=== PATIENT | male | born 1960 | race Caucasian/White ===

== ENCOUNTER 2024-01-20 00:19 | Emergency (ER) | payer OTHER, SELFPAY ==
[2024-01-20 00:40] VITALS: BP 154/91
[2024-01-20 01:54] LABS: % Basophils 0.4 % (0-2); % Eosinophils 2.1 % (0-6); % Immature Granulocytes 0.1 % (0-0.5); % Lymphocytes 38.5 % (20.5-51.1); % Monocytes 7.6 % (1.7-9.3); % Neutrophils 51.3 % (42.2-75.2); Absolute Eosinophils 0.1 10^3/uL (0-0.7); Absolute Lymphocytes 2.6 10^3/uL (1.2-3.4); Absolute Monocytes 0.5 10^3/uL (0.1-0.6); Absolute Neutrophils 3.5 10^3/uL (1.4-6.5); Hematocrit 40.6 % (39.0-52.0); Hemoglobin 14.2 g/dL (13.0-18.0); Mean Corpuscular Hgb 29.6 pg (27.0-31.0); Mean Corpuscular Volume 84.8 fL (80.0-94.0); Mean Platelet Volume 9.5 fL (7.4-10.4); Nucleated Red Blood Cells % 0 % (-); Platelet Count 318 10^3/uL (130-400); Red Blood Cell Count 4.79 10^6/uL (4.70-6.10); Red Cell Dist. Width 13.3 % (11.5-14.5); White Blood Cell Count 6.8 10^3/uL (4.8-10.8)
[2024-01-20 02:07] LABS: ALT (SGPT) 17 U/L (0-50); AST (SGOT) 26 U/L (17-59); Albumin 4.7 g/dl (3.5-5.0); Alkaline Phosphatase 67 U/L (38-126); Blood Urea Nitrogen 18 mg/dl (9-20); Calcium 9.9 mg/dl (8.4-10.2); Carbon Dioxide 25 mmol/L (22-30); Chloride 104 mmol/L (98-107); Glucose 94 mg/dl (70-99); Potassium 4.1 mmol/L (3.5-5.1); Sodium 138 mmol/L (135-145); Total Protein 6.9 g/dl (6.3-8.2); eGFR > 60.00
[2024-01-20 02:19] LABS: Troponin I < 0.012 ng/ml
[2024-01-20 02:41] VITALS: BMI 22.0
[2024-01-20 02:42] VITALS: BP 165/91
[2024-01-20 03:00] VITALS: BP 144/90
[2024-01-20 04:00] VITALS: BP 144/97
--- NOTE | 2024-01-20 04:13 | ED.GENMED ---
History of Present Illness
General
Chief Complaint: Dizziness
Source: patient
Exam Limitations: none
Time Seen by Provider: 01/20/24 03:08
Nursing documentation reviewed up to this point in time: agreed with
History of Present Illness
History of Present Illness:
This is a 63-year-old gentleman who has history of hyperlipidemia, GERD who complains of somewhat abrupt onset of dizziness that began tonight while sitting on the couch. Dizziness described as a sense of movement, lightheadedness that was worse
with standing, improved mildly with sitting still. He complains of difficulty ambulating feeling that he was swaying from [id number] perhaps more so to the left. He also noted mild right-sided headache which has since resolved. Upon EMS
arrival, dizziness seem to worsen en route to the hospital and he developed nausea that improved with IV Zofran provided prehospital.
No history of similar episodes in the past.
Dizziness has since resolved since arrival to the ED.
He does note moderate left-sided headache with waking him from sleep over the past 2 nights which is new for him. Other than this he has been feeling well. No recent URI nor GI illness.
His daily medications include atorvastatin, pantoprazole, amitriptyline.
He was working outdoors for approximately 5 hours in the significantly hot, humid weather yesterday but states he attempted to keep up with his fluids throughout the day and evening.
Past History
Past History
ED Past Medical History: GERD and Hypercholesterolemia
ED Past Surgical History: Orthopedic
Social History
Tobacco: Non-smoker
Alcohol: Occasional
Personal: Single
Living: alone
Employment: Employed
Family History
Family History: Other (Noncontributory)
Phy Exam
Physical Exam
Physical Exam:
GENERAL: Alert , in no apparent distress. 63-year-old gentleman appears his stated age, awake and alert, pleasant, appears in no acute distress.
EYE: pupils equal and reactive. anicteric
NECK: Supple, nontender, no meningismus, no significant adenopathy.
ENT: posterior pharynx is clear, oral mucosa is moist. No rhinorrhea.
CARDIAC: Regular rate and rhythm. no murmur.
LUNGS: Clear breath sounds bilaterally, no acute respiratory distress, no wheezes/rales/rhonchi
ABDOMEN: Soft, nondistended, without focal tenderness, no r/g, no cvat. normoactive BS.
NEUROLOGICAL: Alert and oriented x3, no focal neuro deficits.
SKIN: Warm and dry, normal color, skin intact. No rash.
MUSCULOSKELETAL: No C/C/E. peripheral pulses are full and equal b/l. No palpable tenderness.
PSYCH: Normal and appropriate interaction.
Course
Orders/Labs/Results
Orders:
Orders
01/20/24 00:46
Electrocardiogram (*1) Urgent
Reason for Study: Chest Pain
Cardiology Consult: Unknown
01/20/24 00:47
EKG- Treatment ONCE
01/20/24 01:48
Complete Blood Count/With Diff Urgent
Comprehensive Metabolic Panel Urgent
Troponin I Urgent
01/20/24 03:28
CT Head W/o Iv Contrast Urgent
Comment:
Reason For Exam: intermitt h/a x 3 d; acute dizziness
01/20/24 01:48
01/20/24 01:48
Vital Signs
Initial and Last Documented VS:
Initial Vital Signs
Temp Pulse Resp BP Pulse Ox
98.1 F 60 20 154/91 100
01/20/24 00:40 01/20/24 00:40 01/20/24 00:40 01/20/24 00:40 01/20/24 00:40
Last Documented Vital Signs
Temp Pulse Resp BP Pulse Ox
98.1 F 54 14 156/87 100
01/20/24 00:40 01/20/24 05:30 01/20/24 05:30 01/20/24 05:00 07/14/24 00:40
MDM/Problems Addressed
Differential Diagnosis Includes:
Concern for vertigo, benign paroxysmal peripheral vertigo versus central vertigo versus orthostasis. Less likely arrhythmia but is a possibility.
Labs thus far unremarkable.
EKG shows normal sinus rhythm with unifocal PVC. Monitor shows similar.
Due to intermittent headache with onset of dizziness tonight, unsteady gait will check CT of the head.
*Radiology
Radiology exam reviewed: radiology read reviewed (CT of the head is unremarkable, unchanged from previous June 2021)
*Pulse Oximetry
Patient hypoxic: no
*EKG
Interpreted by ED Provider?: Yes
Interpretation: normal
Comparison EKG: no comparison EKG present
Rate: normal
Rhythm: sinus and PVC's
[place]: normal axis
Interval: normal interval
QRS Pattern: normal QRS
Ischemia: no ischemia
*[employer] Interpretation
Rate: normal
Interpretation: normal
Rhythm: sinus and PVC's
*Critical Care Note
Total Time (30-74mins, 75-104mins- exclusive of procedures): Not Applicable
Update Note
Update Note:
01/20/2024 0611 AM
Patient continues to feel well. Sleeping when undisturbed, easily awakens. He has had no return of dizziness. No chest discomfort, continues to deny palpitations.
CT of the head is unremarkable and unchanged from previous 2020.
Monitor continues show normal sinus rhythm with rare unifocal PVCs.
I suspect acute dizziness may be benign paroxysmal positional vertigo versus an element of heat intolerance from working outdoors and extremely hot/humid environment.
Discussed importance of remaining well-hydrated on a daily basis.
Avoid hot/humid environments.
Prompt follow-up with PCP for recheck.
ED Attending Note
-
Portions of this chart may have been created with voice recognition software.� Occasional wrong word or��sound alike� substitutions may have occurred due to the inherent limitations of voice recognition software.
Discharge Plan
Departure
Patient Disposition: Home (Routine Discharge)
Date of Disposition: 01/20/24
Time of Disposition: 06:15
Patient with high blood pressure during this ER visit?: Yes
Condition: Good
Discharge Problem:
acute vertigo
Instructions: Vertigo (a Type of Dizziness) (DC)
Referrals:
Joseph Fong MD [Family Provider] - Call in 1-3 days for appt
Interventions
Interventions:
*Risk Screen - Suicide Last Done: 01/20/24 00:40
*General Assessment Last Done: 01/20/24 00:40
*Neglect/Abuse Screening Last Done: 01/20/24 00:40
ED- Fall Risk Assessment Last Done: 01/20/24 00:40
*ED COVID-19 Vaccine History Last Done: 01/20/24 00:40
ED- Neurological Assessment Last Done: 01/20/24 02:35
ED Swallowing Screen Last Done: 01/20/24 02:35
Discharge Date and Time
Print Language: NEPALI
[2024-01-20 05:00] VITALS: BP 156/87
[2024-01-20 06:00] VITALS: BP 147/82
== END 2024-01-20 06:53 | disposition home or self-care (01) ==
LOC: EMR 00:19
PROVIDERS: EMERGENCY PHYSICIAN Emergency Medicine; FAMILY PHYSICIAN Family Medicine
DX: R42 Dizziness and giddiness (principal); E78.00 Pure hypercholesterolemia, unspecified; K21.9 Gastro-esophageal reflux disease without esophagitis; R03.0 Elevated blood-pressure reading, without diagnosis of hypertension
CPT/HCPCS: 99285; 70450; 80053; 84484; 85025; 93005